=== PATIENT | female | born 1990 | race Caucasian/White ===

== ENCOUNTER → 2017-02-18 | Outpatient (CLI) | payer BC ==
[~2017-02-18] MED LIST: BCPILLS PO; MULT-506 PO; OMEG120013 PO
== END | disposition home or self-care (01) ==
LOC: C.PAPS 09:03
PROVIDERS: ATTEND Obstetrics & Gynecology
DX: N87.9 Dysplasia of cervix uteri, unspecified (principal)

== ENCOUNTER → 2017-06-07 | Outpatient (CLI) | payer BC ==
[2017-06-07 09:44] LABS: BASO % 0.2 %; BASO ABS # 0.01 K/uL (0-0.2); EOS % 1.2 %; EOS ABS # 0.08 K/uL (0-0.5); HEMATOCRIT 37.3 % (37-47); IG# 0.03 K/uL (0.00-0.02); LYMPH % 14.5 %; LYMPH ABS # 0.94 K/uL (1.2-3.4); MEAN CELL VOLUME 86.3 fL (80-100); MEAN CORPUSCULAR HEMOGLOBIN 30.1 pg (25-34); MEAN CORPUSCULAR HGB CONC 34.9 g/dl (32-36); MEAN PLATELET VOLUME 9.5 fL (7.4-10.4); MONO % 7.6 %; MONO ABS # 0.49 K/uL (0.11-0.59); NEUT ABS # 4.92 K/uL (1.4-6.5); PLATELET COUNT 223 K/uL (130-400); RED CELL DISTRIBUTION WIDTH SD 41.2 fL (36.4-46.3); WHITE BLOOD COUNT 6.47 K/uL (4.8-10.8)
== END ==
LOC: C.LAB 07:54
PROVIDERS: ATTEND Obstetrics & Gynecology
DX: Z34.02 Encounter for supervision of normal first pregnancy, second trimester (principal)

== ENCOUNTER → 2017-09-27 | Outpatient (CLI) | payer BC | END | disposition home or self-care (01) | LOC: C.LAB 07:03 | PROVIDERS: ATTEND Obstetrics & Gynecology | DX: Z34.03 Encounter for supervision of normal first pregnancy, third trimester (principal); Z3A.00 Weeks of gestation of pregnancy not specified ==

== ENCOUNTER → 2017-10-02 | Outpatient (CLI) | payer BC | END | disposition home or self-care (01) | LOC: C.LAB 07:33 | PROVIDERS: ATTEND Obstetrics & Gynecology | DX: O99.810 Abnormal glucose complicating pregnancy (principal); Z3A.00 Weeks of gestation of pregnancy not specified ==

== ENCOUNTER → 2018-01-04 | Outpatient (CLI) | payer BC ==
[~2018-01-04] MED LIST changes: -BCPILLS PO; -OMEG120013 PO
== END | disposition home or self-care (01) ==
LOC: C.PAPS 15:07
PROVIDERS: ATTEND Obstetrics & Gynecology
DX: Z39.2 Encounter for routine postpartum follow-up (principal)

== ENCOUNTER 2021-01-01 05:33 | Inpatient (IN) ==
--- NOTE | 2020-12-25 13:06 | PAT Medication Instructions ---
Medication Instructions Date of Service December 25, 2020 Home Medications prenat.vits,sandeep,[id number] 1 tab PO DAILY labetalol 200 mg tablet 200 mg PO TID DO NOT take the morning of surgery prenat.vits,sandeep,[id number] 1 tab PO DAILY Take morning of surgery With a small sip of water, OTHERWISE NOTHING TO EAT OR DRINK AFTER MIDNIGHT: labetalol 200 mg tablet 200 mg PO TID Other Notes If you have any questions please call us at [phone] or [phone] or [phone] or [phone]
--- NOTE | 2020-12-30 10:13 | Anesthesiology Consultation ---
Date of Service December 30, 2020 Assessment & Plan (1) Encounter for pre-operative examination: - COVID screening: Per assessment on 12/30: Travel screen negative, no known COVID-19 positive contacts or current COVID-19 related symptoms. Surgeon arranging preop COVID testing (being done 12/30 at [facility] visit). Awaiting results. - S/P (11/21/17): Pt had epidural (Epidural x2 attempts/at L3) placed on 11/17/17. Decision for c/s (cephalopelvic disproportion) > dosed epidural at [facility]. Weight at time 155kg. Chart Review Chart Review: Acceptable Risk for Surgery and Patient seen in Pre Admission Testing Teaching & Discussion Pre-Anesthesia Teaching/Discussion Notes: Instructed NPO after midnight before surgery,except medications with 15 cc of water. Medication instructions provided according to the [facility] guidelines. History Surgery Operation Date: 01/01/21 07:30 Proposed Procedures p Section in - Darin Duffy MD Height/Weight Height: 5 ft 9 in Weight: 146.6 kg Allergies Allergy/AdvReac Type Severity Reaction Status Date / Time prednisone Allergy Unknown Skin Verified 12/27/20 14:59 redness Medications Home Medications Medication Instructions Recorded Confirmed Last Taken prenat.vits,sandeep,[id number]-[id number] 1 tab PO DAILY 03/13/20 12/19/20 Unknown labetalol 200 mg tablet 200 mg PO TID 12/19/20 12/19/20 Unknown Past Medical History Medical History Anemia HTN (hypertension) Noted on annual checkup, BP rising throughout , now taking labetolol Exercise / Class Metabolic Activity III < 4 Walking/Shop/Light housework Past Family History Family History Mother Hypothyroidism Grandmother (Maternal) Hypothyroidism Grandmother (Paternal) Hypothyroidism Aunt Hypothyroidism Past Surgical History Surgical History History of (11/21/17): Pt had epidural (Epidural x2 attempts/at L3) placed on 11/17/17. Decision for c/s (cephalopelvic disproportion) > dosed epidural at [facility]. Weight at time 155kg. History of laparoscopic cholecystectomy Past Anesthesia History No Hx of Anesthesia Complications and No Family Hx of Anesthesia Complications History of PONV No Hx of PONV and Hx of Motion Sickness (Rare) Social History Smoking Status: Never smoker Do You Dip or Chew Tobacco: No Hx Alcohol Use: No Hx Substance Use: No substance use type: does not use Review of Systems Patient denies chest pain, shortness of breath, fever, chills, cough, wheezing, palpitations. Physical Exam Vital Signs VITALS BP 117/75 P 91 TEMP WNL SP02 96%RA RESP 16 PHYSICAL Full cervical extension range of motion. Full TMJ range of motion. TMD 4 finger breaths Mallampati Score 2 Dentition: intact Lungs: clear throughout to auscultation Cardiac: regular rate and rhythm, no murmurs noted Spine: normal Extremities: no edema Lab Results Anesthesia Preop Results Results Anesthesia Widget: WBC 9.23 K/uL (4.8-10.8) 12/30/20 Hgb 10.7 g/dL (12.0-16.0) L 12/30/20 Hct 32.3 % (37-47) L 12/30/20 Plt 236 K/uL (130-400) 12/30/20 Na 138 mmol/L (136-145) 12/30/20 K 4.1 mmol/L (3.5-5.1) 12/30/20 Cl 108 mmol/L (98-107) H 12/30/20 CO2 23 mmol/L (21-32) 12/30/20 BUN 6 mg/dl (7-18) L 12/30/20 Creat 0.56 mg/dl (0.6-1.2) L 12/30/20 Glucose Level 83 mg/dl (70-99) 12/30/20 PT 10.1 Seconds (9.0-12.0) 12/30/20 PTT 23.5 Seconds (21.0-31.0) 12/30/20 INR 1.0 (0.9-1.1) 12/30/20 Blood Type B Positive 12/30/20 Antibody Screen NEGATIVE 12/30/20
[2021-01-01] MEDS ORDERED: LACTATED RINGER'S 1,000 ML IV SCH ×2 (05:45→09:30)
[2021-01-01] MEDS ORDERED: cefOXitin 2,000 MG in DEXTROSE 5% 50 ML IV SCH (06:00)
[2021-01-01] MEDS ORDERED: CITRIC ACID/SODIUM CITRATE 15 ML UDC PO SCH (06:00)
[2021-01-01 06:16] LABS: Hematocrit (blood only) 30.2 % (37-47); Hemoglobin 10.2 g/dL (12.0-16.0); Mean Corpuscular Hemoglobin 28.8 pg (25-34); Mean Corpuscular Volume 85.3 fL (80-100); Mean Platelet Volume 9.5 fL (7.4-10.4); Platelet Count 215 K/uL (130-400); RDW Coefficient of Variation 14.1 % (11.5-14.5); RDW Standard Deviation 43.9 fL (36.4-46.3); Red Blood Count 3.54 M/uL (4.2-5.4); White Blood Count 9.09 K/uL (4.8-10.8)
[2021-01-01 06:26] LABS: Partial Thromboplastin Ratio 0.9; Partial Thromboplastin Time 23.4 Seconds (21.0-31.0); Prothrombin Time 9.9 Seconds (9.0-12.0)
[2021-01-01 06:31] LABS: Mean Corpuscular Hgb Conc 33.8 g/dL (32-36)
[2021-01-01 06:40] LABS: ALC (manual) 1.35 K/uL (1.2-3.4); ANC (manual) 7.27 K/uL (1.4-6.5); Eosinophils # (manual) 0.15 K/uL (0-0.5); Eosinophils % (manual) 1.7 %; Lymphocytes # (manual) 1.35 K/uL (1.2-3.4); Lymphocytes % (manual) 14.8 %; Monocytes # (manual) 0.24 K/uL (0.11-0.59); Monocytes % (manual) 2.6 %; Myelocytes # (manual) 0.08 K/uL (0-0); Myelocytes % (manual) 0.9 %; Neutrophils # (manual) 7.27 K/uL (1.4-6.5); RBC Morphology Unremarkable
[2021-01-01 06:50] LABS: BUN Creatinine Ratio 11.6 (10-20); Calcium 8.6 mg/dl (8.5-10.1); Creatinine Clr Calc Pharmacy 235.3 ml/min; Est GFR (African American) 147.7 ml/min; Est GFR (Non-African American) 127.4 ml/min; Potassium 3.6 mmol/L (3.5-5.1)
[2021-01-01] MEDS ORDERED: NALOXONE HCL 1 MG in SODIUM CHLORIDE 0.9% 1000ML 1,000 ML IV PRN (07:23)
[2021-01-01] MEDS ORDERED: NALOXONE HCL 0.08 MG in SYRINGE 1.8 ML IV PRN (07:23)
[2021-01-01] MEDS ORDERED: KETOROLAC 30 MG/ML VIAL IV PRN (07:23)
[2021-01-01] MEDS ORDERED: NALOXONE HCL 0.4 MG/1 ML VIAL/CARP IV PRN (07:23)
[2021-01-01] MEDS ORDERED: LACTATED RINGER'S 500 ML IV PRN (07:23)
[2021-01-01] MEDS ORDERED: ePHEDrine sulfate 50 MG/ML AMP IV PRN (07:23)
[2021-01-01] MEDS ORDERED: NALBUPHINE HCL INJ 10 MG/ML AMP IV PRN (07:23)
[2021-01-01] MEDS ORDERED: diphenhydrAMINE 50 MG/ML VIAL IV PRN (07:23)
[2021-01-01] MEDS ORDERED: ONDANSETRON INJ 2 MG/ML 2 ML VIAL IV PRN (07:23)
[2021-01-01] MEDS ORDERED: MoRPHine SULFATE PF 1 MG/ML 10 ML AMP/VIAL INT SPINAL ONE (07:23)
[2021-01-01] MEDS ORDERED: HYDROmorphone INJ 0.5 MG/0.5 ML SYR IV PRN (07:23)
--- NOTE | 2021-01-01 07:26 | Anesthesiology Consultation ---
Date of Service January 01, 2021 Assessment & Plan Chart Review Chart Review: Acceptable Risk for Surgery and Patient NOT seen in Pre Admission Testing Consults Requested none ASA ASA3 Proposed Anesthesia Anesthesia Type: MAC Spinal Risk / Benefits Reviewed With: PT / POA / Parent / Guardian, Accepts Plan and Informed Consent Obtained History Surgery Operation Date: 01/01/21 07:30 Proposed Procedures p Section - Darin Duffy MD Height/Weight Height: 5 ft 8 in Weight: 144.242 kg Allergies Allergy/AdvReac Type Severity Reaction Status Date / Time prednisone Allergy Unknown Skin Verified 12/27/20 14:59 redness Medications Home Medications Medication Instructions Recorded Confirmed Last Taken prenat.vits,sandeep,[id number] 1 tab PO DAILY 03/13/20 12/19/20 Unknown labetalol 200 mg tablet 200 mg PO TID 12/19/20 12/19/20 Unknown NPO Date Last Intake of Fluids: 12/31/20 Time Last Intake of Fluids: 22:45 Date Last Intake of Solids: 01/01/21 Time Last Intake of Solids: 18:00 Past Medical History Medical History Anemia HTN (hypertension) Noted on annual checkup, BP rising throughout , now taking labetolol Morbid obesity Exercise / Class Metabolic Activity II 4-5 Yardwork/Stairs/Walk up hill Past Family History Family History Mother Hypothyroidism Grandmother (Maternal) Hypothyroidism Grandmother (Paternal) Hypothyroidism Aunt Hypothyroidism Past Surgical History Surgical History History of (11/21/17): Pt had epidural (Epidural x2 attempts/at L3) placed on 11/17/17. Decision for c/s (cephalopelvic disproportion) > dosed epidural at [facility]. Weight at time 155kg. History of laparoscopic cholecystectomy Past Anesthesia History No Hx of Anesthesia Complications and No Family Hx of Anesthesia Complications History of PONV No Hx of PONV and No Hx of Motion Sickness Social History Smoking Status: Never smoker Do You Dip or Chew Tobacco: No Hx Alcohol Use: No Hx Substance Use: No substance use type: does not use Review of Systems no chest pain or sob Physical Exam Vital Signs Last Vital Signs Temp 36.7 C 01/01/21 07:08 Pulse 89 01/01/21 07:24 Resp 20 01/01/21 07:08 BP 121/61 01/01/21 07:09 Pulse Ox 99 01/01/21 07:24 ENMT Mouth: no TMJ abnormality Thyromental Distance: > or= 3.5 Finger Breadths Mallampati Class: II Neck normal visual inspection Respiratory normal respiratory effort Auscultation: lungs clear to auscultation bilaterally Cardiovascular Rate/Rhythm: regular rate and regular rhythm Musculoskeletal Spine: normal cervical ROM Neurologic moves all extremities Psychiatric Orientation: alert and oriented x 3 Testing Laboratory Results 01/01/21 06:08 01/01/21 06:08 PT 9.9 Seconds (9.0-12.0) 01/01/21 06:08 INR 1.0 (0.9-1.1) 01/01/21 06:08 APTT 23.4 Seconds (21.0-31.0) 01/01/21 06:08 Blood Type Cancelled 01/01/21 06:08 Antibody Screen Cancelled 01/01/21 06:08
--- NOTE | 2021-01-01 07:28 | History & Physical Bridge Note ---
Date of Service January 01, 2021 History & Physical Bridge Note I have examined the patient, reviewed the History & Physical and in the interval since the performance of the History & Physical I have noted the following changes of clinical significance: no changes noted
[2021-01-01] MEDS ORDERED: NO NARCOTICS OR SEDATIVES SCH (07:30)
[2021-01-01] MEDS ORDERED: DC INTRASPINAL MORPHINE SCH (07:30)
[2021-01-01] MEDS ORDERED: SODIUM CHLORIDE 0.9% 1000ML 1,000 ML IV SCH (07:30)
[2021-01-01] MEDS ORDERED: fentaNYL citrate 100 MCG/2 ML VIAL ONE (07:34)
[2021-01-01] MEDS ORDERED: MoRPHine SULFATE PF 1 MG/ML 10 ML AMP/VIAL ONE (07:34)
[2021-01-01] MEDS ORDERED: OXYTOCIN 10 UNITS/ML VIAL ONE ×3 (07:56→08:13)
[2021-01-01] MEDS ORDERED: PHENYLEPHRINE 100MCG/ML 5ML SYR ONE (07:57)
[2021-01-01] MEDS ORDERED: ONDANSETRON INJ 2 MG/ML 2 ML VIAL ONE (07:58)
[2021-01-01] MEDS ORDERED: OXYTOCIN 10 UNITS/ML VIAL IM ONE (08:17)
[2021-01-01] MEDS ORDERED: BENZOCAINE 20% AER SPR 82.5 GM CAN EXT PRN (09:01)
[2021-01-01] MEDS ORDERED: SUPERCREAM 0.870% 15 GM JAR EXT PRN (09:01)
[2021-01-01] MEDS ORDERED: DIPHTHERIA/TETANUS/PERTUSSIS 0.5 ML SYR/VIAL IM ONE (09:01)
[2021-01-01] MEDS ORDERED: MAGNESIUM HYDROXIDE SUSP 30 ML UDC PO PRN (09:01)
[2021-01-01] MEDS ORDERED: SENNA 8.6 MG TAB PO PRN (09:01)
[2021-01-01] MEDS ORDERED: HYDROCORTISONE ACETATE 25 MG SUPP PR PRN (09:01)
--- NOTE | 2021-01-01 09:01 | Post Operative Brief Note ---
Immediate Post Op Note v1 Date of Surgery January 01, 2021 Pre & Post Diagnosis Operation Date: 01/01/21 07:30 Pre-Op Diagnosis: desire for repeat section Post-Op Diagnosis: desire for repeat section; repeat low transverse section I identified the patient and participated in the time-out.: Yes Procedure Operation Date: 01/01/21 07:30 Actual Procedures p Section; delivery of live female at 0811 - Darin Duffy MD Surgeon Darin Duffy MD Corporation Secretary Dr Rock Estimated Blood Loss 600 Findings Consistent with Post-Op Diagnosis vertex presentation Drains Alas Catheter (inserted after spinal with return of clear yellow urine) Anesthesia Type Spinal Complications none Disposition Disposition: Recovery Room
--- NOTE | 2021-01-01 09:36 | Anesthesiology Progress Note ---
Date of Service January 01, 2021 Anesthesia Post Procedure Vital Signs Vital Signs: Temp Pulse Resp BP Pulse Ox 01/01/21 09:33 80 109/59 L 01/01/21 09:31 81 98 01/01/21 09:26 83 96 01/01/21 09:24 88 117/61 01/01/21 09:21 101 H 98 01/01/21 09:16 79 95 01/01/21 09:13 82 110/55 L 01/01/21 09:11 86 93 01/01/21 09:08 82 94 01/01/21 09:06 82 96 01/01/21 09:03 96 H 124/56 L 01/01/21 09:01 100 H 98 01/01/21 07:24 89 99 01/01/21 07:19 89 99 01/01/21 07:14 89 100 01/01/21 07:09 93 H 121/61 99 01/01/21 07:08 36.7 C 20 01/01/21 07:04 86 97 01/01/21 07:00 18 01/01/21 06:59 87 97 01/01/21 06:54 87 97 01/01/21 06:49 85 98 01/01/21 06:44 86 97 01/01/21 06:39 84 96 01/01/21 06:34 88 97 01/01/21 06:29 88 96 01/01/21 06:24 89 97 01/01/21 06:19 90 97 01/01/21 06:14 90 97 01/01/21 06:09 89 95 01/01/21 06:04 93 H 97 01/01/21 06:01 98 H 107/58 L 01/01/21 05:59 91 H 98 01/01/21 05:52 37.1 C 18 01/01/21 05:45 37.1 C 18 Transfer of Care Handoff Completed per policy Notes Mental Status: alert / awake / arousable Patient Amnestic to Procedure: Yes Nausea / Vomiting: improving with treatment Pain: adequately controlled Airway Patency, RR, SpO2: stable & adequate BP & HR: stable & adequate Hydration State: stable & adequate Neuraxial Anesthesia: was administered and sensory block is resolving Anesthetic Complications: no major complications apparent and Pt Satisfied with anesthetic care
[2021-01-01] MEDS ORDERED: PROMETHAZINE HCL 25 MG in SODIUM CHLORIDE 0.9% 50 ML IV STA (09:40)
--- NOTE | 2021-01-01 11:12 | Operative Report (OR) ---
DATE OF PROCEDURE: 01/01/2021. INDICATION FOR SURGERY: Intrauterine at term, hypertension, previous section. PREOPERATIVE DIAGNOSES: Hypertension, previous section, term . PROCEDURE: Repeat low segment section. SURGEON: Mireya Duffy MD. HEALTHCARE MANAGER: Dr. Tay Rock. ESTIMATED BLOOD LOSS: 600 mL ANESTHESIA: Spinal. OPERATIVE FINDINGS AND PROCEDURE: The patient was brought to the OR table, correctly identified by a rmband and conversation. Spinal anesthesia was administered. Compression stockings were applied. A Alas catheter was inserted aseptically in the bladder, connected to gravity drainage. Lower abdome n was painted with an alcohol based sterilizing solution and the pannus was taped up after draping in the usual sterile fashion. Pfannenstiel incision was made through a previous scar. Incision was ca rried down to the fascia. Hemostasis was secured by electrocauterization. Fascia was incised transv ersely, from the underlying muscle by blunt and sharp dissection. Recti muscles were separ ated in the midline, exposing the peritoneum which was carefully raised and entered. The lower uteri ne segment was exposed. A self-retraining retractor was inserted in the incision. This exposed the lower uterine segment. Incision was made above the vesicouterine fold. The bladder was undermined bl untly, pushed off the operative field. Lower uterine segment was scored with a knife, then entered w ith scissors. Clear amniotic fluid was seen. At this time, incision was then extended laterally usi ng a vectis retractor to elevate the 's head out of the uterine incision and through the abdomi nal incision. This along with fundal pressure, the infant was delivered without difficulty, suctione d through the mouth and the nose. Cord was stripped, cut and then clamped and then cut and then the infant was attended to by the geometry teacher who was scrubbed and present at the time of delivery. Cor d blood was taken. The placenta was removed manually. Uterus, tubes and ovary were brought out thro ugh the incision. The uterine cavity was cleansed with a clean sponge. Ten units of Pitocin was inj ected into the myometrium. The myometrium was then approximated in 2 layers. The muscular layer was approximated with a running heavy chromic and then the fascial layer was approximated over this with a continuous heavy duty Vicryl. Hemostasis was excellent. The approximation was good. We also [place] roximated the peritoneal edges with a running 3-0 chromic. Following this, the pelvis was cleansed o f all blood clots and debris. Uterus, tubes and ovaries were inspected and found to be normal. They were reinserted into the abdominal cavity. The retractor was removed. A careful anatomical approxi mation of the anterior abdominal wall was performed. The peritoneum was closed with continuous runni ng chromic gut suture. Recti muscles were approximated with interrupted [id number] suture of ch romic catgut. The fascia was closed with continuous interlocking suture of heavy Vicryl on each side and run to the middle. Subcutaneous was approximated with a running plain and skin edges were appro ximated with staple clips. Job ID: [id number]
[2021-01-01] MEDS: OXYTOCIN 20 UNITS in LACTATED RINGER'S 1,000 ML IV SCH ×2 (11:32→19:38)
[2021-01-01] MEDS: LABETALOL HCL 200 MG TAB PO SCH ×2 (14:10→20:59)
[2021-01-01] MEDS: SIMETHICONE 80 MG CHEW PO SCH ×3 (15:32→20:58)
[2021-01-01] MEDS: DOCUSATE SODIUM 100 MG CAP PO SCH (20:58)
[2021-01-02] MEDS ORDERED: PROMETHAZINE HCL 25 MG in SODIUM CHLORIDE 0.9% 50 ML IV PRN (01:24)
[2021-01-02] MEDS ORDERED: ONDANSETRON INJ 2 MG/ML 2 ML VIAL IV PRN (01:24)
[2021-01-02] MEDS ORDERED: KETOROLAC 30 MG/ML VIAL IV PRN (01:24)
[2021-01-02] MEDS ORDERED: diphenhydrAMINE Capsule 25 MG CAP PO PRN (01:24)
[2021-01-02] MEDS ORDERED: ZOLPIDEM TARTRATE 5 MG TAB PO PRN (01:24)
[2021-01-02] MEDS ORDERED: oxyCODONE/ACETAMINOPHEN 5mg/325mg TAB PO PRN (01:24)
[2021-01-02] MEDS ORDERED: MEPERIDINE HCL 50 MG/ML CARP IV PRN (01:24)
[2021-01-02] MEDS ORDERED: diphenhydrAMINE 50 MG/ML VIAL IV PRN (01:24)
[2021-01-02 06:50] LABS: Basophils # (auto) 0.02 K/uL (0-0.2); Basophils % (auto) 0.2 %; Eosinophils # (auto) 0.11 K/uL (0-0.5); Hematocrit (blood only) 32.3 % (37-47); Hemoglobin 10.6 g/dL (12.0-16.0); Immature Granulocytes # (auto) 0.08 K/uL (0.00-0.02); Immature Granulocytes % (auto) 0.7 %; Lymphocytes # (auto) 1.24 K/uL (1.2-3.4); Lymphocytes % (auto) 10.8 %; Mean Corpuscular Hemoglobin 28.4 pg (25-34); Mean Corpuscular Hgb Conc 32.8 g/dL (32-36); Mean Corpuscular Volume 86.6 fL (80-100); Mean Platelet Volume 9.9 fL (7.4-10.4); Monocytes # (auto) 0.78 K/uL (0.11-0.59); Monocytes % (auto) 6.8 %; Neutrophils % (auto) 80.5 %; Platelet Count 237 K/uL (130-400); RDW Coefficient of Variation 14.4 % (11.5-14.5); RDW Standard Deviation 45.2 fL (36.4-46.3); Red Blood Count 3.73 M/uL (4.2-5.4); White Blood Count 11.43 K/uL (4.8-10.8)
--- NOTE | 2021-01-02 08:32 | Obstetrical Progress Note ---
Date of Service January 02, 2021 Assessment & Plan Admission and Anticipated Discharge Date Admission Date: January 01, 2021 Subjective abdomen soft and non tender bandage removed incision is clean and dry no calf tenderness ambulating well passing flatus vaginal bleeding scant hgb 10.6 Results & Data ([facility]) Vital Signs (Past 12 Hours) Vital Signs Temp Pulse Resp BP Pulse Ox 01/02/21 03:10 36.5 C 89 18 110/74 93 01/02/21 01:00 18 94 01/02/21 00:20 18 94 01/01/21 23:20 36.9 C 93 H 18 119/78 96 01/01/21 20:50 20 95
[2021-01-02] MEDS: SIMETHICONE 80 MG CHEW PO SCH ×4 (08:38→21:06)
[2021-01-02] MEDS: LABETALOL HCL 200 MG TAB PO SCH ×3 (08:38→21:25)
[2021-01-02] MEDS: PRENATAL VITAMIN 1 TAB PO SCH (08:38)
[2021-01-02] MEDS: FERROUS SULFATE 325 MG TAB PO SCH (08:38)
[2021-01-02] MEDS: DOCUSATE SODIUM 100 MG CAP PO SCH ×2 (08:38→21:06)
--- NOTE | 2021-01-02 09:59 | Anesthesiology Progress Note ---
Date of Service January 02, 2021 Anesthesia Post Procedure Vital Signs Vital Signs: Temp Pulse Pulse Resp BP BP Pulse Ox 01/02/21 03:10 36.5 C 89 18 110/74 93 01/02/21 01:00 18 94 01/02/21 00:20 18 94 01/01/21 23:20 36.9 C 93 H 18 119/78 96 01/01/21 20:50 20 95 01/01/21 19:40 36.9 C 90 20 111/74 95 01/01/21 17:50 20 96 01/01/21 16:50 20 95 01/01/21 15:50 36.8 C 85 20 117/76 96 01/01/21 13:30 18 95 01/01/21 12:30 18 95 01/01/21 11:30 36.4 C L 74 18 120/79 96 01/01/21 11:16 77 99 01/01/21 11:13 78 131/71 01/01/21 11:11 79 98 01/01/21 11:06 83 95 01/01/21 11:03 36.7 C 75 16 125/71 01/01/21 11:01 67 98 01/01/21 10:56 71 96 01/01/21 10:53 64 122/65 01/01/21 10:51 70 95 01/01/21 10:46 73 95 01/01/21 10:43 68 123/65 01/01/21 10:41 68 94 01/01/21 10:36 74 92 01/01/21 10:33 81 18 122/74 01/01/21 10:31 69 94 01/01/21 10:26 71 93 01/01/21 10:23 80 115/65 01/01/21 10:21 74 93 01/01/21 10:16 77 92 01/01/21 10:13 83 105/66 01/01/21 10:11 84 94 01/01/21 10:06 80 96 01/01/21 10:04 80 104/78 01/01/21 10:03 36.8 C 18 01/01/21 10:01 73 92 Pain Intensity Lower Abdomen: Pain Intensity: 3 Transfer of Care Handoff Completed per policy Notes Mental Status: alert / awake / arousable Patient Amnestic to Procedure: Yes Nausea / Vomiting: adequately controlled Pain: adequately controlled Airway Patency, RR, SpO2: stable & adequate BP & HR: stable & adequate Hydration State: stable & adequate Neuraxial Anesthesia: was administered and sensory block resolved Anesthetic Complications: no major complications apparent and Pt Satisfied with anesthetic care
[2021-01-02] MEDS: IBUPROFEN 600 MG TAB PO PRN ×2 (15:20→21:06)
[2021-01-02] MEDS ORDERED: bisacodyL 5 MG TABEC PO SCH (20:00)
[2021-01-03] MEDS: IBUPROFEN 600 MG TAB PO PRN ×2 (03:07→08:32)
[2021-01-03 06:15] LABS: Hematocrit (blood only) 29.9 % (37-47); Hemoglobin 9.8 g/dL (12.0-16.0)
[2021-01-03] MEDS: PRENATAL VITAMIN 1 TAB PO SCH (08:32)
[2021-01-03] MEDS: LABETALOL HCL 200 MG TAB PO SCH (08:32)
[2021-01-03] MEDS: FERROUS SULFATE 325 MG TAB PO SCH (08:32)
[2021-01-03] MEDS: DOCUSATE SODIUM 100 MG CAP PO SCH (08:32)
[2021-01-03] MEDS: SIMETHICONE 80 MG CHEW PO SCH (08:32)
--- NOTE | 2021-01-03 08:45 | Obstetrical Progress Note ---
Date of Service January 03, 2021 Assessment & Plan Admission and Anticipated Discharge Date Admission Date: January 01, 2021 Subjective abdomen soft and non tender no calf tenderness ambulating well incision is clean and dry vaginal bleeding scant hgb 9.8 Results & Data ([facility]) Vital Signs (Past 12 Hours) Vital Signs Temp Pulse Resp BP Pulse Ox 01/02/21 23:10 36.7 C 84 18 135/84 96
[2021-01-03] MEDS ORDERED: bisacodyL 10 MG SUPP PR PRN (09:01)
--- NOTE | 2021-01-03 09:25 | Discharge Summary (DS) ---
DATE OF DISCHARGE: 01/03/2021. HOSPITAL COURSE: The patient has been followed in my office for care and delivery. Her ricardo or delivery was via after and failed induction for hypertension. Present was man aged with one baby aspirin daily early in the and this was continued up until 36 weeks when it was stopped. She also ended up on labetalol 100 mg 3 times a day to control her pressures. She was then brought in at 39 weeks' gestation for repeat low segment section. Day of admission, she was taken to the OR where she underwent repeat low segment section after receiving prop hylactic antibiotics. Her preoperative hemoglobin was 10.6, postoperatively, she did well. The proc edure went well. Normal amount of blood loss. Her bowel sounds returned within 24 hours and she was tolerating a regular diet. Her incision remained clean and dry. By the second postoperative day, s he was ambulating well, eating well, afebrile and she requested discharge. Her hemoglobin postop fel l to 9.8. She was instructed to stay on vitamins and iron and to call the office for remova l of parvez. She was also given prescriptions for Percocet and Motrin for pain control. Job ID: [id number]
== END 2021-01-03 11:05 | disposition home or self-care (01) | DRG 788 ==
LOC: 4S1 05:33 → EDSTATUS 07:30 → 4S2 11:51 → 4N 01-02 18:04